=== PATIENT | male | born 1995 | race Asian ===

== ENCOUNTER 2025-06-11 11:44 | Day surgery (SDC) | payer OTHER ==
[~2025-06-11] VITALS: Ht 170.2 cm; Wt 61.8 kg
[~2025-06-11 11:44] MED LIST: GLYCOPYRROLATE INJ 0.2 MG/ML 2 ML VIAL As Ordered ONE; LIDOCAINE 2% 100 MG/5 ML SDV (FOR ANES.) As Ordered ONE
[2025-06-11 14:55] VITALS: TEMP 97.6
[2025-06-11 15:15] VITALS: BP 99/58; O2SAT 99
== END 2025-06-11 15:19 | disposition home or self-care (01) ==
LOC: M OPP 11:44
PROVIDERS: ATTEND Internal Medicine Gastroenterology
DX: K29.50 Unspecified chronic gastritis without bleeding (principal); R13.10 Dysphagia, unspecified; Z88.0 Allergy status to penicillin; F17.210 Nicotine dependence, cigarettes, uncomplicated
CPT/HCPCS: 43239; 88305; J1596; J2765